=== PATIENT | female | born 1960 | race Asian ===

== ENCOUNTER → 2018-08-26 | Outpatient (CLI) | payer OTHER | END | disposition home or self-care (01) | LOC: CFH 07:29 | PROVIDERS: ATTEND Family Medicine | DX: Z12.31 Encounter for screening mammogram for malignant neoplasm of breast (principal) | CPT/HCPCS: 77067 ==

== ENCOUNTER → 2020-05-01 | Outpatient (CLI) | payer OTHER | END | disposition home or self-care (01) | LOC: CFH 09:21 | PROVIDERS: ATTEND Family Medicine | DX: Z12.31 Encounter for screening mammogram for malignant neoplasm of breast (principal) | CPT/HCPCS: 77067 ==

== ENCOUNTER 2021-06-02 07:51 | Emergency (ER) | payer OTHER ==
[~2021-06-02] VITALS: Ht 154.9 cm; Wt 78.8 kg
[2021-06-02] MEDS ORDERED: PRAV10TA2 PO (09:05)
[2021-06-02] MEDS ORDERED: LOSA100T14 PO (09:05)
--- NOTE | 2021-06-02 09:05 | NUR ---
PT TO ROOM. VSS. 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 DOES NOT WEAR SUPPORT STOCKINGS AT WORK. ALSO BACK PAIN. ALSO REPORTS SOME FACIAL SWELLING. FINIHSED COURSE OF MACROBID MAY 25 FOR UTI. +PULSES, NO PAIN/ITCHING IN LEGS. CALL DOVE.
[2021-06-02 10:00] LABS: BASOPHILS % (AUTO) 1 % (0-1); EOSINOPHILS % (AUTO) 2 % (1-7); LYMPHOCYTES % (AUTO) 29 % (22-44); MEAN CORPUSCULAR HGB CONC 34.2 g/dL (32.4-35.8); MEAN PLATELET VOLUME 7.8 fL (7.4-10.4); MONOCYTES % (AUTO) 6 % (2-9); NEUTROPHILS % (AUTO) 61 % (42-75); PLATELET COUNT 274 x10^3/uL (130-400); RED BLOOD COUNT 4.23 x10^6/uL (3.82-5.3)
[2021-06-02 10:10] LABS: ALANINE AMINOTRANSFERASE 22 U/L (12-78); ALBUMIN 3.3 g/dL (3.4-5.0); CALCIUM 8.6 mg/dL (8.5-10.1); CREATININE 0.98 mg/dL (0.55-1.02)
[2021-06-02 10:14] LABS: ALKALINE PHOSPHATASE 58 U/L (45-117); BILIRUBIN,TOTAL 0.5 mg/dL (0.2-1.0); TOTAL PROTEIN 7.4 g/dL (6.4-8.2)
[2021-06-02 10:20] LABS: ANION GAP 4 mmol/L (5-15); CHLORIDE 111 mmol/L (98-107)
[2021-06-02 12:09] VITALS: BP 132/80
== END 2021-06-02 12:12 | disposition home or self-care (01) ==
LOC: ED 09:11
DX: R60.0 Localized edema (principal); I10 Essential (primary) hypertension; E78.5 Hyperlipidemia, unspecified
CPT/HCPCS: 36415; 80053; 83880; 85025; 93005; 93970; 99285